=== PATIENT | male | born 1990 | race Caucasian/White ===

== ENCOUNTER 2023-11-07 20:02 | Emergency (ER) | payer SELFPAY ==
[2023-11-07 20:03] VITALS: BP 129/101; PULSE 100; RESP 14; TEMP 36.4; O2SAT 99; BMI 17.1
--- NOTE | 2023-11-07 20:23 | EX.ED.SAOD ---
HPI <FAUSTO Higginbotham - Last Filed: 11/07/23 21:37> History of Present Illness Chief Complaint: Substance Abuse Narrative Narrative: Patient presenting today requesting a urine drug screen. He reports that he used cocaine about 3 to 4 days ago and wants to know if it was laced with methamphetamine. He reports that it made him feel different. He had various aches and pains today and a, zapping sensation in his right foot and wants to know if his drugs were laced. He reports that he feels well now. He has no acute complaints. PFSH <FAUSTO Higginbotham - Last Filed: 11/07/23 21:37> PFSH Allergy/AdvReac Type Severity Reaction Status Date / Time No Known Allergies Allergy Verified 11/07/23 20:09 ROS <FAUSTO Higginbotham - Last Filed: 11/07/23 21:37> ROS ED Constitutional Constitutional ED: Denies chills or fever(s) Cardiovascular Cardiovascular: Denies chest pain or palpitations Respiratory/Chest Respiratory/Chest: Denies cough or dyspnea Gastrointestinal Gastrointestinal: Denies abdominal pain, nausea or vomiting Musculoskeletal Musculoskeletal: Denies arthralgias or myalgias Integumentary Denies rash Neurologic Neurologic: Denies weakness EXAM <FAUSTO Higginbotham Last Filed: 11/07/23 21:37> Physical Exam Const Vital Signs: 11/07/23 20:03 Temperature 97.6 F L Temperature Source Temporal Pulse Rate 100 Respiratory Rate 14 Blood Pressure 129/101 H Blood Pressure Mean 110 Pulse Ox 99 Positive well nourished, well developed and no apparent distress General Appearance ED: well developed HEENT Reports normocephalic and head/scalp atraumatic Mouth ED: Yes moist mucous membranes normal Eyes PERRL and EOMs intact bilaterally Neck full ROM and supple Chest Wall inspection of chest normal Resp normal respiratory effort and clear to auscultation bilaterally Cardio regular rate and regular rhythm GI soft to palpation, non-tender, non-distended and no masses Back/Spine normal ROM and normal to inspection Extremity normal to inspection and full ROM Neuro oriented x3, CN's II-XII intact bilaterally, moves all extremities, no focal motor deficits and no sensory deficits noted Sensorium / Orientation: awake and alert Psych mental status grossly normal and thought process normal Skin no rashes or lesions noted and no wounds <Dr. Denton Bautista MD - Last Filed: 11/07/23 20:31> Physical Exam Const Vital Signs: 11/07/23 20:03 Temperature 97.6 F L Temperature Source Temporal Pulse Rate 100 Respiratory Rate 14 Blood Pressure 129/101 H Blood Pressure Mean 110 Pulse Ox 99 MDM <FAUSTO Higginbotham - Last Filed: 11/07/23 21:37> [facility] Narrative Medical decision making narrative: Patient presenting requesting urine drug screening. He snorted cocaine 3 to 4 days ago and wants to know if it has been laced with amphetamines. He has no other acute complaints. His urine toxicology screen came back for cannabinoids. Patient will be discharged in stable condition. Drug cessation was encouraged. I have personally performed a face to face assessment of the patient and have reviewed the ASHLEY Note. I performed a substantive portion of the visit including all aspects of the following. My hutchison findings include: History is 33-year-old male longstanding history of drug abuse. States he snorted cocaine 3 to 4 days ago. He is not sure was. Cocaine. He thinks it was something else laced with it. He wants to know what that was. Denies any specific complaints. He is not having any chest pain. States he is doing cocaine daily now he does not less often maybe once or twice a week. Exam is [33-year-old male no acute distress vital signs stable. He is animated. 2 females present in room. H EENT exam unremarkable. Neck nontender. Lungs clear. Heart regular rhythm rate about 100 no murmur. Chest wall and ribs nontender. Abdomen soft nontender. Moving all 4 extremities. Nontender no edema. No track nickerson. Neurologically is awake and alert no focal motor deficits.] Medical Decision Making [I had a discussion with the patient and family present in the room. Explained to him that were happy to do that urine tox screen it will not change any workup to do. And that multiple drugs and synthetics may not show up on tox screen. He still wants it done. I explained doing that there is no other specific antidote or anything or do treatment card. And I also talked to him about drug counseling and stopping using cocaine.] Other additions or changes: [None] Lab Data Attestation: I reviewed the patient's lab results. Labs: Laboratory Results - last 24 hr 11/07/23 20:17 Urine Opiates Screen NEGATIVE Urine Methadone Screen NEGATIVE Ur Barbiturates Screen NEGATIVE Ur Phencyclidine Scrn NEGATIVE Ur Amphetamines Screen NEGATIVE MDMA (Ecstasy) Screen NEGATIVE U Benzodiazepines Scrn NEGATIVE Urine Cocaine Screen NEGATIVE U Cannabinoids Screen POSITIVE H Ur Drug Screen Comment <Dr. Denton Bautista MD - Last Filed: 11/07/23 20:31> MDM MDM Narrative Medical decision making narrative: Patient presenting requesting urine drug screening. He snorted cocaine 3 to 4 days ago and wants to know if it has been laced with amphetamines. He has no other acute complaints. I have personally performed a face to face assessment of the patient and have reviewed the ASHLEY Note. I performed a substantive portion of the visit including all aspects of the following. My hutchison findings include: History is 33-year-old male longstanding history of drug abuse. States he snorted cocaine 3 to 4 days ago. He is not sure was. Cocaine. He thinks it was something else laced with it. He wants to know what that was. Denies any specific complaints. He is not having any chest pain. States he is doing cocaine daily now he does not less often maybe once or twice a week. Exam is [33-year-old male no acute distress vital signs stable. He is animated. 2 females present in room. H EENT exam unremarkable. Neck nontender. Lungs clear. Heart regular rhythm rate about 100 no murmur. Chest wall and ribs nontender. Abdomen soft nontender. Moving all 4 extremities. Nontender no edema. No track nickerson. Neurologically is awake and alert no focal motor deficits.] Medical Decision Making [I had a discussion with the patient and family present in the room. Explained to him that were happy to do that urine tox screen it will not change any workup to do. And that multiple drugs and synthetics may not show up on tox screen. He still wants it done. I explained doing that there is no other specific antidote or anything or do treatment card. And I also talked to him about drug counseling and stopping using cocaine.] Other additions or changes: [None] Lab Data Labs: Laboratory Results - last 24 hr 11/07/23 20:17 Urine Opiates Screen NEGATIVE Urine Methadone Screen NEGATIVE Ur Barbiturates Screen NEGATIVE Ur Phencyclidine Scrn NEGATIVE Ur Amphetamines Screen NEGATIVE MDMA (Ecstasy) Screen NEGATIVE U Benzodiazepines Scrn NEGATIVE Urine Cocaine Screen NEGATIVE U Cannabinoids Screen POSITIVE H Ur Drug Screen Comment Discharge Plan Triage Chief Complaint: Substance Abuse ED Midlevel Provider: Raven Heard ED Provider: Denton Bautista Dx/Rx/DC Orders Clinical Impression: Drug abuse Instructions: ED Drug Abuse Primary Care Provider: Care Physician,No Primary Referrals: Care Physician,No Primary [Primary Care Provider] - [facility] [Non-Staff] - As soon as possible Activity Restrictions/Additional Instructions: Strongly consider following up with the [facility] for drug abuse. Long-term you need to come off of using the cocaine if not you could have a heart attack, stroke, fatal heart abnormal rhythm or other issues. Print Language: Uzbek Disposition Disposition: Home, Self Care
[2023-11-07 21:02] VITALS: BP 123/81; PULSE 80; RESP 18; O2SAT 100
[2023-11-07 21:30] LABS: Amphetamine Urine VISTA NEGATIVE (<1000 ng/mL); Barbiturate Urine VISTA NEGATIVE (< 200 ng/mL); Benzodiazepine Urine VISTA NEGATIVE (< 200 ng/mL); Cocaine Urine VISTA NEGATIVE (< 300 ng/mL); Ecstacy Urine VISTA NEGATIVE (< 500 ng/mL); Methadone Urine VISTA NEGATIVE (< 300 ng/mL); PCP Urine VISTA NEGATIVE (< 25 ng/mL); THC Urine VISTA POSITIVE (< 50 ng/mL)
[2023-11-07 21:37] VITALS: BP 123/80; PULSE 81; RESP 18; TEMP 36.9; O2SAT 98
--- NOTE | 2023-11-07 22:42 | ED.RN ---
pt was provided ice water at discharge, denied being suicidal or homicidal at this time
[2023-11-09 06:02] LABS: Vista UDS pH Range 5
== END 2023-11-07 21:42 | disposition home or self-care (01) ==
PROVIDERS: Physician Assistant; Emergency Provider Emergency Medicine; Visit Provider Emergency Medicine
DX: F14.90 Cocaine use, unspecified, uncomplicated (principal)
CPT/HCPCS: 80307; 99282

== ENCOUNTER 2023-11-09 04:40 | Emergency (ER) | payer SELFPAY ==
[2023-11-09] VITALS (23 sets, daily range): BP systolic 100–173; BP diastolic 66–105; PULSE 76–137; RESP 9–30; TEMP 36.2–37.2; O2SAT 95–99; BMI 18.8
--- NOTE | 2023-11-09 04:50 | EKG12_ITS ---
Test Reason : Blood Pressure : / mmHG Vent. Rate : 136 BPM Atrial Rate : 136 BPM P-R Int : 128 ms QRS Dur : 084 ms QT Int : 320 ms P-R-T Axes : 082 157 065 degrees QTc Int : 481 ms Sinus tachycardia Right atrial enlargement POOR R WAVE PROGRESSION Abnormal ECG Confirmed by Db Mathews ([id number]), online editor DESI ROBLES ([id number]) on 11/11/2023 1:44:32 PM Referred By: Confirmed By:Db Mathews
[2023-11-09] MEDS: 0.9% Normal Saline (1000mL) 1,000 ML 999 ML IV (04:56)
[2023-11-09 05:05] LABS: Absolute Lymphocyte Count 2.14 X10^3/uL (0.83-4.51); Absolute Neutrophil Count 7.6 X10^3/uL (2.0-7.7); Basophil# 0.07 X10^3/uL; Basophil% 0.6 % (0-1); Eosinophil# 0.02 X10^3/uL; Eosinophils% 0.2 % (0-5); Hematocrit 43.3 % (40-54); Hemoglobin 14.5 g/dL (13.0-16.5); Lymphocyte # 2.14 X10^3/ul (0.83-4.51); Lymphocyte % 19.7 % (19-41); Mean Corp Hgb Conc 33.5 g/dL (32-36); Mean Corpuscular Hgb 29.9 pg (27.0-32.0); Mean Corpuscular Volume 89.3 fL (80-94); Mean Platelet Vol. 9.7 fl (6.2-12.0); Monocyte# 1.05 X10^3/uL; Monocyte% 9.7 % (0-10); NRBC Flagged by Analyzer 0 % (0-5); Neutrophil # 7.57 X10^3/uL (2.7-7.7); Neutrophil % 69.5 % (47-70); Platelet Count 543 K/mm3 (150-450); RBC Distribution Width CV 12.6 % (11.6-14.6); RBC Distribution Width SD 41.3 fl (35.1-43.9); Red Blood Count 4.85 M/mm3 (4.6-6.2); White Blood Count 10.9 K/mm3 (4.4-11.0)
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
[2023-11-09 05:24] LABS: Acetaminophen (Tylenol) Level < 2.0 ug/mL (10.0-30.0); Alcohol, Blood (Medical)-Serum < 3.0 mg/dL; Salicylate < 1.7 mg/dL (2.8-20.0)
[2023-11-09 05:31] LABS: AST(SGOT) 21 U/L (15-37); Alanine Aminotransfer ALT/SGPT 23 U/L (16-61); Albumin, Serum 4.4 g/dL (3.2-5.0); Alkaline Phosphatase 67 U/L (45-117); Anion Gap 14 (5-15); BUN 14 mg/dL (7-18); BUN/Creat Ratio 11.9 RATIO (10-20); Bilirubin, Direct 0.14 mg/dL (0.00-0.30); Calcium,Total 9.5 mg/dL (8.5-10.1); Chloride 107 mmol/L (98-107); Creatinine, Serum 1.18 mg/dL (0.70-1.30); EST Glomerular Filtration Rate 76 mL/min (>60); Est Glom Filt Rate - Afr Amer 92 mL/min (>60); Estimated Creatinine Clearance 74.16 ml/min; Globulin 3.3 g/dL (2.2-4.2); Glucose 162 mg/dL (74-106); Magnesium 2.5 mg/dL (1.6-2.6); Potassium 3.5 mmol/L (3.5-5.1); Protein, Total 7.7 g/dL (6.4-8.2); Sodium Level 140 mmol/L (136-145); Thyroid Stim Hormone (TSH) 0.93 uIU/mL (0.358-3.74)
[2023-11-09 05:33] LABS: Lactic Acid 4.4 mmol/L (0.4-1.9)
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
--- NOTE | 2023-11-09 06:21 | EDS_ITS ---
HPI History of Present Illness Chief Complaint: Mental Health Informant: patient, EMS and police/senior production planner Narrative Narrative: Patient is a 33-year-old male with history of illicit drug use who was reportedly seen yesterday for multiple complaints and eventually discharged home. Police and EMS state they were called to the patient's house by neighbors who heard loud screaming and yelling. They state when they arrived the patient was altered but protecting his airway and acting aggressive. They state that there were multiple firearms at the residence but had no signs of use and they deny any obvious drug paraphernalia such as needles or alcohol bottles at the premises. However the patient is altered and screaming and with concern for overdose or self-harm he was brought in for evaluation [facility] Medical History unable to obtain unable to obtain (Secondary to altered mental status) Home Medications ?Medication ?Instructions ?Recorded ?Last Taken ?Type NK 11/09/23 Unknown History Allergy/AdvReac Type Severity Reaction Status Date / Time No Known Allergies Allergy Verified 11/09/23 04:54 Social History Smoking Status: Smoker, status unknown ROS ROS ED Review of Systems ROS Unobtainable: due to mental condition and due to mental status EXAM Physical Exam Const Vital Signs: 11/09/23 04:42 11/09/23 05:41 11/09/23 06:00 Temperature 98.9 F Temperature Source Temporal Pulse Rate 137 H 119 H 112 H Respiratory Rate 12 14 21 H Blood Pressure 173/105 H 134/99 H 148/98 H Blood Pressure Mean 127 110 114 Pulse Ox 96 98 96 Oxygen Delivery Method Room Air Room Air Room Air 11/09/23 07:00 Temperature Temperature Source Pulse Rate 93 Respiratory Rate 12 Blood Pressure 136/88 H Blood Pressure Mean 104 Pulse Ox 99 Oxygen Delivery Method Room Air Positive well nourished and well developed General Appearance ED: well developed; Negative for pallor HEENT HEENT Narrative: Normocephalic atraumatic No tongue or cheek biting noted Eyes EOMs intact bilaterally Eyes Narrative: Pupils are midpoint but sluggish to respond to light General Eye ED: Negative for scleral icterus Neck supple Neck Narrative: No nuchal rigidity or meningeal signs noted Chest Wall palpation of chest normal Chest Narrative: No bony deformity or crepitance Resp normal respiratory effort and clear to auscultation bilaterally Resp Narrative: No nasal flaring retractions tachypnea or accessory muscle use Cardio regular rhythm Rate: tachycardic and other Other Details: Tachycardic rate with regular rhythm No murmurs rubs or gallops Radial and carotid pulses are equal and symmetric GI non-distended GI Narrative: Abdomen is soft and nondistended with hypoactive bowel sounds Auscultation: hypoactive bowel sounds Palpation: soft Extremity normal to inspection Extremity Narrative: No bony deformity or joint effusion noted Neuro Neuro Narrative: Patient is altered not answering questions or responding to commands He is just screaming out in nature making noises without words He is moving all extremities however and there is no obvious focal neurologic deficit Psych Psych Narrative: Patient has a altered/obtunded affect Skin no rashes or lesions noted and no wounds General Skin Exam: Negative for jaundice or pallor MDM MDM MDM Narrative Medical decision making narrative: Patient arrived to the ER tachycardic and hypertensive but was thrashing on the bed and screaming out uncontrollably and was also given IM ketamine per EMS which would cause secondary tachycardia and hypertension. He has no signs of head trauma and he is protecting his airway therefore there is no need for emergent airway stabilization nor do I feel the need for head CT. According to police the patient at 1 point admitted to doing shrooms and therefore this is most likely illicit drug use/inadvertent overdose. As the patient is not following commands and has aggressive behavior the decision was made to place him in 4-point restraints for both staff and patient's safety. A medical workup was then performed in order to potentially clear the patient from a psychiatric standpoint for potential placement. While in the ER the patient's vital signs improved as well as his mental status and he is now awake alert and oriented. He admits to doing cocaine and mus hrooms this evening. He states that he did them in order to get high and not in an deliberate attempt at self-harm but states he does have thoughts of suicide. He denies any previous suicide attempt or psychiatric hospitalization. However because of the police reporting he has access to firearms at home and he is admitting to illicit drug use and has suicidal ideation/thoughts there is concern that he would be high risk for self-harm if discharged. Therefore at this time patient will undergo medical clearance exam and will be evaluated by psychiatry/crisis center for potential placement The patient will be signed out to the day physician while this occurs The patient's lactic acid is elevated but this is most likely stress response secondary to his drug use and recent tachycardia and hypertension therefore he will be given IV fluids which should resolve this event. The patient is medically cleared from emergency standpoint for transfer/placement to a psychiatric center if needed History & Record Review Discussion w/independent historian: EMS personnel Lab Data Attestation: I reviewed the patient's lab results. Labs: Laboratory Results - last 24 hr 11/09/23 11/09/23 04:56 06:06 WBC 10.9 RBC 4.85 Hgb 14.5 Hct 43.3 MCV 89.3 MCH 29.9 MCHC 33.5 RDW Std Deviation 41.3 RDW Coeff of Yecenia 12.6 Plt Count 543 H MPV 9.7 Immature Gran % (Auto) 0.300 Neut % (Auto) 69.5 Lymph % (Auto) 19.7 Wallace % (Auto) 9.7 Eos % (Auto) 0.2 Baso % (Auto) 0.6 Absolute Neuts (auto) 7.6 Absolute Lymphs (auto) 2.14 Nucleated RBC % 0 Sodium 140 Potassium 3.5 Chloride 107 Carbon Dioxide 19.0 L Anion Gap 14 BUN 14 Creatinine 1.18 Estim Creat Clear Calc 74.16 Est GFR (MDRD) Af Amer 92 Est GFR (MDRD) Non-Af 76 BUN/Creatinine Ratio 11.9 Glucose 162 H Lactic Acid 4.4 H* Calcium 9.5 Magnesium 2.5 Total Bilirubin 0.50 Direct Bilirubin 0.14 AST 21 ALT 23 Alkaline Phosphatase 67 Total Protein 7.7 Albumin 4.4 Globulin 3.3 TSH 0.93 Salicylates < 1.7 L Urine Opiates Screen NEGATIVE Urine Methadone Screen NEGATIVE Acetaminophen < 2.0 L Ur Barbiturates Screen NEGATIVE Ur Phencyclidine Scrn NEGATIVE Ur Amphetamines Screen NEGATIVE MDMA (Ecstasy) Screen NEGATIVE U Benzodiazepines Scrn NEGATIVE Urine Cocaine Screen NEGATIVE U Cannabinoids Screen POSITIVE H Ur Drug Screen Comment Ethyl Alcohol < 3.0 Discharge Plan Triage Chief Complaint: Mental Health ED Provider: Ger Morales Dx/Rx/DC Orders Clinical Impression: Drug abuse, Suicidal ideation Prescriptions: No Action NK Primary Care Provider: Care Physician,No Primary Referrals: Care Physician,No Primary [Primary Care Provider] - Print Language: Upper Sorbian
[2023-11-09 06:30] LABS: Amphetamine Urine VISTA NEGATIVE (<1000 ng/mL); Barbiturate Urine VISTA NEGATIVE (< 200 ng/mL); Benzodiazepine Urine VISTA NEGATIVE (< 200 ng/mL); Cocaine Urine VISTA NEGATIVE (< 300 ng/mL); Ecstacy Urine VISTA NEGATIVE (< 500 ng/mL); Methadone Urine VISTA NEGATIVE (< 300 ng/mL); PCP Urine VISTA NEGATIVE (< 25 ng/mL); THC Urine VISTA POSITIVE (< 50 ng/mL); Vista UDS pH Range 5
--- NOTE | 2023-11-09 07:11 | ED.RN ---
Called crisis for patient. chart has been faxed.
[2023-11-09 09:02] LABS: Reflex Lactate? Y
--- NOTE | 2023-11-09 12:58 | ED.RN ---
Pt accepted at [facility]. Dr Cisneros unit [address] nurse to nurse [phone]
--- NOTE | 2023-11-09 13:40 | ED.RN ---
[place] given to patient's brother
--- NOTE | 2023-11-09 13:47 | ED.RN ---
THIS RN ATTEMPTS TO CALL REPORT TO [facility] AT THIS TIME. CALL WAS FORWARDED TO [facility] AT THIS TIME, WILL ATTEMPT TO CALL REPORT AT A LATER TIME.
--- NOTE | 2023-11-09 14:23 | ED.RN ---
REPORT CALLED TO JOHNNY TAPIA AT [facility].
== END 2023-11-09 15:27 ==
PROVIDERS: Emergency Provider Emergency Medicine; Visit Provider Emergency Medicine
DX: R45.851 Suicidal ideations (principal); F19.19 Other psychoactive substance abuse with unspecified psychoactive substance-induced disorder; F17.200 Nicotine dependence, unspecified, uncomplicated
CPT/HCPCS: 80048; 80076; 80307; 80329; 82077; 83605; 83735; 84443; 85025; 93005; 96360; 99285; J7030; A4216; G0480